=== PATIENT | female | born 1955 | race Caucasian/White ===

== ENCOUNTER → 2016-10-20 | Outpatient (CLI) | payer MEDICAID ==
[~2016-10-20] MED LIST: IOPAMIDOL (ISOVUE-370) 150 ML BTL IV ONE
--- NOTE | 2016-10-20 15:13 | CT ---
CT Scan of the Abdomen and Pelvis (With Contrast) at 1420 hours History: Urinary tract infection. N 39.0, K 57.92, R 10.31 Technique: Axial computed tomographic images of the abdomen and pelvis were obtained with the unevent ful intravenous administration of 90 mL Isovue-300 contrast. Additional oral contrast. Dose reduction techniques were utilized. CT Abdomen Findings: Lung bases: Normal. Liver: 9 mm benign hepatic cysts in the right lobe liver. No solid masses. Biliary system: Gallbladder surgically absent with surgical clips gallbladder fossa. No biliary ducta l dilation. Spleen: Normal. Pancreas: Normal. Adrenals: Normal. Kidneys: Mild right hydronephrosis with prominent calyces and renal pelvis which narrows abruptly at the right proximal ureteral pelvic junction suggesting a right UPJ obstruction. On the delayed images there is contrast in the renal pelvis and calyces but no definite contrast in the right ureter. Left kidney demonstrates no hydronephrosis. However there is thickening and mild enhancement of the entir e left ureter. No ureterolithiasis or nephrolithiasis. No perinephric fluid. No definite focal pyelon ephritis. Abdominal Aorta: Mild atherosclerotic aorta without aneurysm. No bowel obstruction, ascites, or significant retroperitoneal lymphadenopathy. Moderate stool in the transverse and descending colon. CT Pelvis Findings: No evidence of bladder calculi. No distal ureteral calculi noted. Calcified phleb oliths in the pelvis. Oral contrast in the stomach, small bowel and right colon. No diverticulitis. N o adnexal masses. No evidence of diverticulitis, bowel obstruction, or thickening of the appendix. Pr evious hysterectomy. Impression: 1. Suspected right UPJ obstruction with dilated right renal pelvis and calyces. 2. Possible left urinary tract infection without evidence of obstruction. Both kidneys demonstrate no evidence of focal pyelonephritis or perinephric fluid. 3. No nephrolithiasis or ureterolithiasis. 4. Mild atherosclerotic aorta without aneurysm. 5. Benign hepatic cyst. 6. Moderate constipation without evidence of diverticulitis or appendicitis. Findings and recommendations discussed with Dr. Ingrid López at 1510 hour, today. A Document Only message has been documented for INGRID LÓPEZ MD in the [employer] system on 10/20/2016 15:10, Message ID [id number].
== END ==
LOC: CIMAGING 13:19
PROVIDERS: ATTEND Family Medicine
DX: K76.89 Other specified diseases of liver (principal); K59.00 Constipation, unspecified
CPT/HCPCS: 74177-PO; Q9967

== ENCOUNTER → 2017-05-05 | Outpatient (CLI) | payer MEDICAID | LOC: CIMAGING 08:50 | PROVIDERS: ATTEND Family Medicine | DX: M25.561 Pain in right knee (principal); M25.562 Pain in left knee | CPT/HCPCS: 73562-PO ==